=== PATIENT | female | born 1940 | race Caucasian/White ===

== ENCOUNTER 2019-02-04 03:03 | Emergency (ER) | payer OTHER ==
[~2019-02-04] VITALS: Ht 160 cm; Wt 72.0 kg
[2019-02-04 03:13] VITALS: Ht 160 cm; Wt 72.0 kg
--- NOTE | 2019-02-04 04:57 | ERD ---
ER Documentation Chief Complaint Chief Complaint palpitations, CP x 30 min, SVT on scene, convertd w/ adenonsine 6mg per ems HPI This is a 78-year-old female comes in with palpitations associated chest pain. Patient has history of SVT and converted with SVT in the field with 6 mg of adenosine given by EMS to normal sinus rhythm. Since then she has been pain- free. She denies any fevers chills nausea vomiting. Denies any shortness of breath currently. Denies any other current issues ROS All systems reviewed and are negative except as per history of present illness. Allergies Allergies: Coded Allergies: No Known Allergy (Unverified , 02/04/19) PMhx/Soc History of Surgery: Yes (HYSTERECTOMY) Anesthesia Reaction: No Hx Neurological Disorder: No Hx Respiratory Disorders: No Hx Cardiac Disorders: Yes (HTN, SVT) Hx Psychiatric Problems: No Hx Miscellaneous Medical Probl: No Hx Alcohol Use: No Hx Substance Use: No Hx Tobacco Use: No Smoking Status: Never smoker Physical Exam Vitals Vital Signs Date Temp Pulse Resp B/P (MAP) Pulse Ox O2 O2 Flow FiO2 Time Delivery Rate 02/04/19 97.5 89 18 132/73 98 Room Air 03:20 (92) 02/04/19 97.7 93 18 145/72 98 03:13 (96) Physical Exam Const: No acute distress Head: Atraumatic Eyes: Normal Conjunctiva ENT: Normal External Ears, Nose and Mouth. Neck: Full range of motion. No meningismus. Resp: Clear to auscultation bilaterally Cardio: Regular rate and rhythm, no murmurs Abd: Soft, non tender, non distended. Normal bowel sounds Skin: No petechiae or rashes Back: No midline or flank tenderness Ext: No cyanosis, or edema Neur: Awake and alert Psych: Normal Mood and Affect Result Diagram: 02/04/19 0325 02/04/19 0325 Results 24 hrs Laboratory Tests Test 02/04/19 03:25 White Blood Count 7.9 10^3/ul Red Blood Count 4.79 10^6/ul Hemoglobin 13.6 g/dl Hematocrit 44.3 % Mean Corpuscular Volume 92.5 fl Mean Corpuscular Hemoglobin 28.4 pg Mean Corpuscular Hemoglobin Concent 30.7 g/dl Red Cell Distribution Width 13.9 % Platelet Count 270 10^3/UL Mean Platelet Volume 10.5 fl Immature Granulocytes % 0.300 % Neutrophils % 56.7 % Lymphocytes % 35.8 % Monocytes % 5.9 % Eosinophils % 0.9 % Basophils % 0.4 % Nucleated Red Blood Cells % 0.0 /100WBC Immature Granulocytes # 0.020 10^3/ul Neutrophils # 4.5 10^3/ul Lymphocytes # 2.8 10^3/ul Monocytes # 0.5 10^3/ul Eosinophils # 0.1 10^3/ul Basophils # 0.0 10^3/ul Nucleated Red Blood Cells # 0.0 10^3/ul Sodium Level 142 mmol/L Potassium Level 3.9 mmol/L Chloride Level 103 mmol/L Carbon Dioxide Level 27 mmol/L Anion Gap 12 Blood Urea Nitrogen 11 mg/dl Creatinine 0.75 mg/dl Est Glomerular Filtrat Rate mL/min mL/min Glucose Level 176 mg/dl Calcium Level 9.6 mg/dl Total Bilirubin 0.2 mg/dl Direct Bilirubin 0.00 mg/dl Indirect Bilirubin 0.2 mg/dl Aspartate Amino Transf (AST/SGOT) 27 IU/L Alanine Aminotransferase (ALT/SGPT) 29 IU/L Alkaline Phosphatase 84 IU/L Troponin I 0.026 ng/ml B-Type Natriuretic Peptide 146 PG/ML Total Protein 8.3 g/dl Albumin 4.4 g/dl Globulin 3.90 g/dl Albumin/Globulin Ratio 1.12 Procedures/MDM EKG: Rate/Rhythm: [Normal Sinus Rhythm] QRS, ST, T-waves: [No changes consistent w/ acute ischemia] Impression: [No evidence of ischemia or arrhythmia] Chest X-ray 1V Interpreted by me: Soft Tissue: No acute abnormalities Bones: No acute abnormalities Mediastinum/Cardiac Silhouette/Lungs: [No acute abnormalities] Patient's thoracic symptoms have stabilized while in the department and are stable for outpatient follow up. Exam and work up not consistent w/ ischemia, arrhythmia, PE or dissection. Departure Diagnosis: Primary Impression: Palpitations Condition: Stable MALLY SMITH Feb 04, 2019 04:57
[2019-02-04 05:20] VITALS: BP 142/78; PULSE 81; RESP 20
== END 2019-02-04 05:25 | disposition home or self-care (01) ==
LOC: E/R 03:03
DX: R00.2 Palpitations (principal); I10 Essential (primary) hypertension
CPT/HCPCS: 36415; 71045; 80053; 83880; 84484; 85025; 93005